=== PATIENT | female | born 1980 | race Caucasian/White ===

== ENCOUNTER 2017-06-08 17:33 | Emergency (ER) | payer MEDICAID ==
[~2017-06-08] VITALS: Ht 172.7 cm; Wt 59.3 kg
[2017-06-08 17:35] VITALS: BP 122/79
== END 2017-06-08 18:32 | disposition home or self-care (01) ==
LOC: ED 18:15
DX: G89.11 Acute pain due to trauma (principal); M79.602 Pain in left arm; Z98.890 Other specified postprocedural states
CPT/HCPCS: 99281

== ENCOUNTER 2019-02-18 21:23 | Emergency (ER) | payer MEDICAID ==
[~2019-02-18] VITALS: Ht 175.3 cm; Wt 61.2 kg
[2019-02-18 22:13] VITALS: BP 116/70
--- NOTE | 2019-02-18 22:32 | NUR ---
Patient came into ER c/o SOB. She states it woke her from sleep and she was unable to catch her breath. Since then she has had heaviness in her chest that will not go away but does not radiate. Patient keeps repeating, "I need to stop smoking. This is my own fault. I know it's going to kill me." Patient's voice is raspy but is not in any apparent distress. Skin PWD. Patient speaking in full word sentences. No cough noted.
== END 2019-02-18 22:52 | disposition home or self-care (01) ==
LOC: ED 22:30
DX: J20.8 Acute bronchitis due to other specified organisms (principal); J44.9 Chronic obstructive pulmonary disease, unspecified; F17.210 Nicotine dependence, cigarettes, uncomplicated
CPT/HCPCS: 71046; 93005; 99283; 99406

== ENCOUNTER 2019-06-18 15:40 | Emergency (ER) | payer MEDICAID ==
[~2019-06-18] VITALS: Ht 170.2 cm; Wt 64.0 kg
[2019-06-18 15:44] VITALS: BP 114/79
== END 2019-06-18 17:22 | disposition home or self-care (01) ==
LOC: ED 16:01
DX: J44.9 Chronic obstructive pulmonary disease, unspecified (principal); F17.200 Nicotine dependence, unspecified, uncomplicated
CPT/HCPCS: 71045; 99283

== ENCOUNTER 2019-07-05 10:58 | Inpatient (IN) | payer MEDICAID ==
[~2019-07-05] VITALS: Ht 175.3 cm; Wt 65.9 kg
--- NOTE | 2019-07-05 11:02 | NUR ---
TRIAGE IN ROOM. PT WAS 82% ON ROOM AIR, AND 87% W A NASAL CANULA 6L. MASK APPLIED PRIOR TO TRIAGE IN ROOM 33.
[2019-07-05] MEDS ORDERED: ALBUTEROL/IPRATROPIUM 2.5MG/0.5MG, 3 ML ONE (11:23)
[2019-07-05] MEDS ORDERED: ALBUTEROL/IPRATROPIUM 2.5MG/0.5MG, 3 ML NPPB ONE (11:30)
[2019-07-05] MEDS ORDERED: SODIUM CHLORIDE FLUSH 10ML SYR IVF ONE (11:30)
[2019-07-05 11:40] LABS: BASOPHILS # (AUTO) 0.01 x10^3/uL (0-0.1); BASOPHILS % (AUTO) 0 % (0-1); EOSINOPHILS % (AUTO) 0 % (1-7); LYMPHOCYTES # (AUTO) 0.82 x10^3/uL (1-3.4); LYMPHOCYTES % (AUTO) 8 % (22-44); MD NO; MEAN CORPUSCULAR HEMOGLOBIN 33.9 pg (27.0-34.8); MEAN CORPUSCULAR HGB CONC 33.8 g/dL (32.4-35.8); MEAN CORPUSCULAR VOLUME 100.4 fL (80-100); MEAN PLATELET VOLUME 8.3 fL (7.4-10.4); MONOCYTES % (AUTO) 12 % (2-9); NEUTROPHILS # (AUTO) 8.38 x10^3/uL (1.8-6.8); NEUTROPHILS % (AUTO) 80 % (42-75); PLATELET COUNT 262 x10^3/uL (130-400); RED BLOOD COUNT 4.59 x10^6/uL (3.82-5.3); RED CELL DISTRIBUTION WIDTH 13.1 % (9.6-15.2)
--- NOTE | 2019-07-05 11:43 | NUR ---
IV START FAILED AFTER INITIAL BLOOD RETURN STOPPED. SECOND ATTEMPT UNDERWAY.
--- NOTE | 2019-07-05 11:44 | NUR ---
PIV EST, LABS DRAWN, CXR AT BEDSIDE. NEB TX COMPLETE. PT USING ACCESSORY MUSCLES, R40. PLAN CONT NEB AND OPTIFLO. CALLED RESP. ANDRY WAS AT BEDSIDE. LAB AT BEDSIDE. PLAN FOR ABG.
[2019-07-05 11:49] LABS: ALBUMIN 3.2 g/dL (3.4-5.0); ANION GAP 12 mmol/L (5-15); CALCIUM 9.1 mg/dL (8.5-10.1); CHLORIDE 96 mmol/L (98-107); CREATININE 0.81 mg/dL (0.55-1.02)
--- NOTE | 2019-07-05 12:04 | NUR ---
ANDRY WAS IN ROOM TO DISCUSS INTUBATION. PLAN FOR OPTIFLOW AND IN LINE BREATHING TX. RESP AT BEDSIDE.
[2019-07-05] MEDS ORDERED: CEFTRIAXONE PMX 1GM/50ML 50 ML ONE (12:26)
[2019-07-05] MEDS ORDERED: AZITHROMYCIN 500 MG in SODIUM CHLORIDE 0.9% 250 ML IVPB ONE (12:30)
[2019-07-05] MEDS ORDERED: CEFTRIAXONE PMX 1GM/50ML 50 ML IVPB ONE (12:30)
[2019-07-05] MEDS ORDERED: ALBUTEROL/IPRATROPIUM 2.5MG/0.5MG, 3 ML NEB ONE (12:30)
[2019-07-05] MEDS ORDERED: VECURONIUM 10 MG ONE (12:39)
[2019-07-05] MEDS ORDERED: PROPOFOL 100 ML IV ONE (12:49)
--- NOTE | 2019-07-05 13:05 | NUR ---
1247 jasmineusz in room. 1251 meds: 7 mg vec, 20 etomidate 1300 intubated. 7.5 tube 25 at lip. 18 fr og inserted. plan for central line once settled. 1313 saenz placed. prop gtt initiated. restraints in place. as
[2019-07-05] MEDS ORDERED: ACETAMINOPHEN 325 MG SUPP ONE (13:16)
[2019-07-05] MEDS ORDERED: ICN MIDAZOLAM 0.1 MG/ML IV IVPush ONE (13:30)
[2019-07-05] MEDS ORDERED: ETOMIDATE 40 MG/20 ML IVPush ONE (13:30)
[2019-07-05] MEDS ORDERED: SODIUM CHLORIDE 0.9% 1,000ML IVBOLUS ONE (13:30)
[2019-07-05] MEDS ORDERED: VECURONIUM 10 MG IVPush ONE (13:30)
[2019-07-05] MEDS ORDERED: ACETAMINOPHEN 650 MG SUPP PR ONE (13:30)
[2019-07-05] MEDS ORDERED: MIDAZOLAM 1 MG/ML, 5ML IVPush ONE (13:30)
[2019-07-05] MEDS: PROPOFOL 100 ML IV PRN ×3 (13:35→21:32)
--- NOTE | 2019-07-05 14:03 | NUR ---
saenz put out approx 40 cc khai urine. per verbal order 30 cc per kg, 30x61 kg. 1st liter ns infused. 2nd liter in process cxr was at bedside, delay d/t equipment. as
--- NOTE | 2019-07-05 14:05 | NUR ---
end tidal co2 38. as
--- NOTE | 2019-07-05 14:14 | NUR ---
nolvia/labs drawn. as
--- NOTE | 2019-07-05 14:30 | NUR ---
gulshan smith: [phone] *[phone]
--- NOTE | 2019-07-05 14:30 | NUR ---
report to [facility] hdz. versed prn per may. pt wakes up v easily. as
--- NOTE | 2019-07-05 14:39 | NUR ---
total 2 L ns infused. [facility] made aware of low urine outpt. no new orders. per [facility] hold off on central line right now. as
--- NOTE | 2019-07-05 14:47 | NUR ---
1 silver ring and 1 silver necklace placed in labeled clean urine cup. as
--- NOTE | 2019-07-05 15:40 | NUR ---
PT TX TO ICU LALIT RN W/ 2 RNS/SUMIT ERICKSON ON ZOLL W/ ALL BELONGINGS.
[2019-07-05] MEDS ORDERED: NOREPINEPHRINE 8 MG in SODIUM CHLORIDE 0.9% 242 ML IV PRN (16:17)
[2019-07-05] MEDS ORDERED: PHARMACY MAY ADJ FOR RENAL FX MC SCH (16:30)
[2019-07-05] MEDS ORDERED: BISACODYL 10 MG SUPP PR PRN (16:30)
[2019-07-05] MEDS ORDERED: SENNA 176 MG/5 ML ORAL SOL NG PRN (16:30)
[2019-07-05] MEDS ORDERED: LACTULOSE 20 GM/30 ML UDC NG PRN (16:30)
[2019-07-05] MEDS ORDERED: SENNA/DOCUSATE TABLET NG PRN (16:30)
[2019-07-05] MEDS ORDERED: LIDOCAINE-MPF 1%, 2ML ENDO PRN (16:30)
[2019-07-05] MEDS: MIDAZOLAM 1 MG/ML, 5ML IVPush PRN ×2 (17:21→19:24)
[2019-07-05 18:23] LABS: TRIGLYCERIDES 70 mg/dL (50-200)
[2019-07-05 18:26] LABS: TROPONIN I 0.227 ng/mL (0.000-0.045)
[2019-07-05] MEDS ORDERED: PHARMACY MAY ADJ FOR RENAL FX MC PRN (19:00)
[2019-07-05] MEDS: ALBUTEROL/IPRATROPIUM 2.5MG/0.5MG, 3 ML NPPB SCH ×2 (19:12→22:27)
[2019-07-05] MEDS: ASCORBATE SODIUM 3,000 MG in SODIUM CHLORIDE 0.9% 250 ML IVPB SCH (19:25)
[2019-07-05] MEDS: ZINC SULFATE 220 MG CAPSULE PO SCH (19:28)
[2019-07-05] MEDS: CHOLECALCIFEROL 5,000u TAB PO SCH (19:28)
[2019-07-05] MEDS: PLAQUENIL 200MG/8ML ORAL SUSP PO SCH (19:29)
[2019-07-05] MEDS: ACETAMINOPHEN 325 MG TABLET PO PRN (20:23)
[2019-07-05] MEDS: MONTELUKAST 10 MG TABLET PO SCH (21:32)
[2019-07-05 23:07] LABS: TROPONIN I 0.154 ng/mL (0.000-0.045)
[2019-07-06] MEDS: MIDAZOLAM HCL 50 MG in SODIUM CHLORIDE 0.9% 40 ML IV PRN ×4 (00:08→23:19)
[2019-07-06] MEDS: ASCORBATE SODIUM 3,000 MG in SODIUM CHLORIDE 0.9% 250 ML IVPB SCH ×5 (00:16→23:25)
[2019-07-06] MEDS: ALBUTEROL/IPRATROPIUM 2.5MG/0.5MG, 3 ML NPPB SCH ×6 (02:50→22:20)
[2019-07-06] MEDS: PROPOFOL 100 ML IV PRN ×4 (03:06→20:45)
[2019-07-06 04:00] VITALS: BP 108/68
[2019-07-06 05:50] LABS: MEAN CORPUSCULAR HEMOGLOBIN 33.9 pg (27.0-34.8); MEAN CORPUSCULAR HGB CONC 33.9 g/dL (32.4-35.8); MEAN CORPUSCULAR VOLUME 100.1 fL (80-100); MEAN PLATELET VOLUME 8.4 fL (7.4-10.4); PLATELET COUNT 185 x10^3/uL (130-400); RED BLOOD COUNT 3.78 x10^6/uL (3.82-5.3); RED CELL DISTRIBUTION WIDTH 13.6 % (9.6-15.2)
[2019-07-06 05:59] LABS: ALBUMIN 2.1 g/dL (3.4-5.0); ANION GAP 7 mmol/L (5-15); CALCIUM 8.4 mg/dL (8.5-10.1); CHLORIDE 103 mmol/L (98-107)
[2019-07-06 06:06] LABS: TROPONIN I 0.042 ng/mL (0.000-0.045)
[2019-07-06 06:11] LABS: D-DIMER 3.6 ug/mlFEU (0.00-0.52); INTERNATIONAL NORMALIZED RATIO 1.21 (0.93-1.1); PROTHROMBIN TIME 12.9 Seconds (9.6-11.5)
[2019-07-06 06:18] LABS: MD YES
[2019-07-06 06:19] LABS: BAND#(MANUAL) 1.28 x10^3/uL; BANDS%(MANUAL) 18 % (0-7); LYMPHS% (MANUAL) 7 % (22-44); MONOS#(MANUAL) 0.36 x10^3/uL (0.3-2.7); MONOS% (MANUAL) 5 % (2-9); SEG#(MANUAL) 4.97 x10^3/uL (1.8-6.8); SEGS% (MANUAL) 70 % (42-75)
[2019-07-06 06:21] LABS: <PLATELET ESTIMATE> ADEQUATE; <PLT MORPHOLOGY> NORMAL PLT MORPH; PMNS WITH VACUOLES 1+
[2019-07-06 06:26] LABS: ALANINE AMINOTRANSFERASE 39 U/L (12-78); ALKALINE PHOSPHATASE 76 U/L (45-117); BILIRUBIN,TOTAL 0.7 mg/dL (0.2-1.0); CREATINE KINASE, TOTAL 23 U/L (26-192); CREATININE 0.42 mg/dL (0.55-1.02); TOTAL PROTEIN 5.7 g/dL (6.4-8.2)
[2019-07-06] MEDS: PLAQUENIL 200MG/8ML ORAL SUSP PO SCH ×2 (06:33→16:53)
[2019-07-06] MEDS ORDERED: ENOXAPARIN 40 MG/0.4 ML ONE (07:47)
[2019-07-06] MEDS ORDERED: FAMOTIDINE 20 MG TABLET ONE (07:47)
[2019-07-06] MEDS: CHOLECALCIFEROL 5,000u TAB PO SCH (07:48)
[2019-07-06] MEDS: ZINC SULFATE 220 MG CAPSULE PO SCH (07:48)
[2019-07-06] MEDS: FAMOTIDINE 20 MG TABLET PO SCH ×2 (07:48→20:44)
[2019-07-06] MEDS: ENOXAPARIN 40 MG/0.4 ML SQ SCH (07:49)
[2019-07-06] MEDS ORDERED: MAGNESIUM SULFATE PMX 2GM/50ML 50 ML IVPB ONE (09:00)
[2019-07-06] MEDS: POTASSIUM CHLORIDE 10% 40 MEQ/30 ML UDC NG SCH ×2 (12:19→20:44)
[2019-07-06] MEDS: AZITHROMYCIN 200 MG/5 ML, ORAL SUSP PO SCH (12:19)
[2019-07-06] MEDS: CEFTRIAXONE PMX 2GM/50ML 50 ML IV SCH (12:19)
[2019-07-06] MEDS: ACETAMINOPHEN 325 MG TABLET PO PRN ×2 (12:35→23:26)
[2019-07-06] MEDS ORDERED: AZITHROMYCIN 500 MG in SODIUM CHLORIDE 0.9% 250 ML IV SCH (13:00)
[2019-07-06] MEDS ORDERED: POTASSIUM CHLORIDE 20 MEQ, MAGNESIUM SULFATE 1 GM, THIAMINE 200 MG, FOLIC ACID 1 MG, MV... IV SCH (14:30)
[2019-07-06] MEDS: MONTELUKAST 10 MG TABLET PO SCH (20:45)
[2019-07-06] MEDS ORDERED: ACETAMINOPHEN 650 MG/20.3 ML UDC ONE (23:25)
[2019-07-07] MEDS: PROPOFOL 100 ML IV PRN ×4 (01:26→20:24)
[2019-07-07] MEDS ORDERED: ALBUMIN HUMAN 5% 500 ML IV ONE (01:30)
[2019-07-07] MEDS: ALBUTEROL/IPRATROPIUM 2.5MG/0.5MG, 3 ML NPPB SCH ×6 (02:35→22:25)
[2019-07-07] MEDS: ASCORBATE SODIUM 3,000 MG in SODIUM CHLORIDE 0.9% 250 ML IVPB SCH ×2 (04:34→09:52)
[2019-07-07] MEDS: PLAQUENIL 200MG/8ML ORAL SUSP PO SCH (04:34)
[2019-07-07 05:10] LABS: ALANINE AMINOTRANSFERASE 27 U/L (12-78); ALBUMIN 2.3 g/dL (3.4-5.0); ANION GAP 6 mmol/L (5-15); CALCIUM 8.3 mg/dL (8.5-10.1); CHLORIDE 109 mmol/L (98-107); CREATININE 0.34 mg/dL (0.55-1.02)
[2019-07-07 05:12] LABS: MEAN CORPUSCULAR HEMOGLOBIN 33.7 pg (27.0-34.8); MEAN CORPUSCULAR HGB CONC 32.9 g/dL (32.4-35.8); MEAN CORPUSCULAR VOLUME 102.6 fL (80-100); MEAN PLATELET VOLUME 8.7 fL (7.4-10.4); PLATELET COUNT 170 x10^3/uL (130-400); RED BLOOD COUNT 3.33 x10^6/uL (3.82-5.3); RED CELL DISTRIBUTION WIDTH 13.5 % (9.6-15.2)
[2019-07-07 05:13] LABS: D-DIMER 1.68 ug/mlFEU (0.00-0.52); INTERNATIONAL NORMALIZED RATIO 1.1 (0.93-1.1); PROTHROMBIN TIME 11.7 Seconds (9.6-11.5)
[2019-07-07 05:15] LABS: ALKALINE PHOSPHATASE 72 U/L (45-117); BILIRUBIN,TOTAL 0.5 mg/dL (0.2-1.0); CREATINE KINASE, TOTAL 85 U/L (26-192); TOTAL PROTEIN 5.4 g/dL (6.4-8.2)
[2019-07-07 05:19] LABS: TROPONIN I < 0.015 ng/mL (0.000-0.045)
[2019-07-07] MEDS: MIDAZOLAM HCL 50 MG in SODIUM CHLORIDE 0.9% 40 ML IV PRN ×3 (05:27→23:05)
[2019-07-07 06:17] LABS: MD YES
[2019-07-07 06:21] LABS: BAND#(MANUAL) 1.04 x10^3/uL; BANDS%(MANUAL) 15 % (0-7); EOS#(MANUAL) 0.14 x10^3/uL (0.0-0.4); EOS% (MANUAL) 2 % (1-7); LYMPH#(MANUAL) 0.97 x10^3/uL (1-3.4); LYMPHS% (MANUAL) 14 % (22-44); METAMYELOCYTES# (MANUAL) 0.35 x10^3/uL (0-0); METAMYELOCYTES% (MANUAL) 5 % (0-1); MONOS#(MANUAL) 0.35 x10^3/uL (0.3-2.7); MONOS% (MANUAL) 5 % (2-9); SEG#(MANUAL) 4.07 x10^3/uL (1.8-6.8); SEGS% (MANUAL) 59 % (42-75)
[2019-07-07 06:24] LABS: <PLATELET ESTIMATE> ADEQUATE; <PLT MORPHOLOGY> NORMAL PLT MORPH; PMNS WITH VACUOLES 1+
[2019-07-07] MEDS: CHOLECALCIFEROL 5,000u TAB PO SCH (09:00)
[2019-07-07] MEDS: ZINC SULFATE 220 MG CAPSULE PO SCH (09:00)
[2019-07-07] MEDS: FAMOTIDINE 20 MG TABLET PO SCH ×2 (10:07→20:24)
[2019-07-07] MEDS: ACETAMINOPHEN 325 MG TABLET PO PRN (10:07)
[2019-07-07] MEDS: ENOXAPARIN 40 MG/0.4 ML SQ SCH (10:07)
[2019-07-07] MEDS: AZITHROMYCIN 200 MG/5 ML, ORAL SUSP PO SCH (10:07)
[2019-07-07] MEDS: methylPREDNISolone SOD SUCC 125 MG/2 ML IVPush SCH ×3 (12:40→23:04)
[2019-07-07] MEDS: CEFTRIAXONE PMX 2GM/50ML 50 ML IV SCH (12:40)
[2019-07-07] MEDS: POTASSIUM CHLORIDE 20 MEQ, MAGNESIUM SULFATE 1 GM, THIAMINE 200 MG, FOLIC ACID 1 MG, MV... IV SCH (17:29)
[2019-07-07] MEDS: MONTELUKAST 10 MG TABLET PO SCH (20:24)
[2019-07-08] MEDS: PROPOFOL 100 ML IV PRN ×4 (01:38→20:54)
[2019-07-08] MEDS: ALBUTEROL/IPRATROPIUM 2.5MG/0.5MG, 3 ML NPPB SCH ×6 (02:12→23:00)
[2019-07-08 03:59] LABS: ALBUMIN 2.3 g/dL (3.4-5.0); ANION GAP 4 mmol/L (5-15); CALCIUM 8.8 mg/dL (8.5-10.1); CHLORIDE 109 mmol/L (98-107)
[2019-07-08 04:00] LABS: BASOPHILS # (AUTO) 0.02 x10^3/uL (0-0.1); BASOPHILS % (AUTO) 0 % (0-1); EOSINOPHILS % (AUTO) 0 % (1-7); INTERNATIONAL NORMALIZED RATIO 0.95 (0.93-1.1); LYMPHOCYTES # (AUTO) 0.35 x10^3/uL (1-3.4); LYMPHOCYTES % (AUTO) 5 % (22-44); MD NO; MEAN CORPUSCULAR HEMOGLOBIN 33.6 pg (27.0-34.8); MEAN CORPUSCULAR HGB CONC 33.1 g/dL (32.4-35.8); MEAN CORPUSCULAR VOLUME 101.3 fL (80-100); MEAN PLATELET VOLUME 8.8 fL (7.4-10.4); MONOCYTES # (AUTO) 0.24 x10^3/uL (0.2-0.8); MONOCYTES % (AUTO) 3 % (2-9); NEUTROPHILS # (AUTO) 6.69 x10^3/uL (1.8-6.8); NEUTROPHILS % (AUTO) 92 % (42-75); PLATELET COUNT 206 x10^3/uL (130-400); PROTHROMBIN TIME 10.1 Seconds (9.6-11.5); RED CELL DISTRIBUTION WIDTH 13.4 % (9.6-15.2)
[2019-07-08 04:03] LABS: ALANINE AMINOTRANSFERASE 29 U/L (12-78); ALKALINE PHOSPHATASE 106 U/L (45-117); BILIRUBIN,TOTAL 0.4 mg/dL (0.2-1.0); CREATINE KINASE, TOTAL 64 U/L (26-192); CREATININE 0.37 mg/dL (0.55-1.02); TOTAL PROTEIN 6.1 g/dL (6.4-8.2); TRIGLYCERIDES 162 mg/dL (50-200)
[2019-07-08] MEDS: methylPREDNISolone SOD SUCC 125 MG/2 ML IVPush SCH ×3 (04:51→16:45)
[2019-07-08] MEDS: ENOXAPARIN 40 MG/0.4 ML SQ SCH (09:00)
[2019-07-08] MEDS: FAMOTIDINE 20 MG TABLET PO SCH ×2 (09:00→22:11)
[2019-07-08] MEDS: MIDAZOLAM HCL 50 MG in SODIUM CHLORIDE 0.9% 40 ML IV PRN ×2 (09:01→17:26)
[2019-07-08] MEDS: CEFTRIAXONE PMX 2GM/50ML 50 ML IV SCH (11:30)
[2019-07-08] MEDS: AZITHROMYCIN 200 MG/5 ML, ORAL SUSP PO SCH (11:32)
[2019-07-08] MEDS: BUDESONIDE 0.5 MG/2 ML INHA INH SCH (18:51)
[2019-07-08] MEDS: MONTELUKAST 10 MG TABLET PO SCH (22:11)
[2019-07-08] MEDS: POTASSIUM CHLORIDE 20 MEQ, MAGNESIUM SULFATE 1 GM, THIAMINE 200 MG, FOLIC ACID 1 MG, MV... IV SCH (22:31)
[2019-07-09] MEDS: methylPREDNISolone SOD SUCC 125 MG/2 ML IVPush SCH ×4 (00:37→18:30)
[2019-07-09] MEDS: PROPOFOL 100 ML IV PRN ×3 (01:51→17:00)
[2019-07-09] MEDS: ALBUTEROL/IPRATROPIUM 2.5MG/0.5MG, 3 ML NPPB SCH ×6 (02:45→22:26)
[2019-07-09] MEDS: MIDAZOLAM HCL 50 MG in SODIUM CHLORIDE 0.9% 40 ML IV PRN ×3 (03:33→22:05)
[2019-07-09 04:16] LABS: MEAN CORPUSCULAR HEMOGLOBIN 33.8 pg (27.0-34.8); MEAN CORPUSCULAR HGB CONC 33.5 g/dL (32.4-35.8); MEAN CORPUSCULAR VOLUME 100.7 fL (80-100); MEAN PLATELET VOLUME 8.6 fL (7.4-10.4); PLATELET COUNT 259 x10^3/uL (130-400); RED BLOOD COUNT 3.79 x10^6/uL (3.82-5.3); RED CELL DISTRIBUTION WIDTH 13.6 % (9.6-15.2)
[2019-07-09 04:25] LABS: ANION GAP 5 mmol/L (5-15); CHLORIDE 108 mmol/L (98-107)
[2019-07-09 04:26] LABS: ALANINE AMINOTRANSFERASE 30 U/L (12-78); ALBUMIN 2.4 g/dL (3.4-5.0)
[2019-07-09 04:30] LABS: ALKALINE PHOSPHATASE 126 U/L (45-117); BILIRUBIN,TOTAL 0.3 mg/dL (0.2-1.0); CREATINE KINASE, TOTAL 28 U/L (26-192); INTERNATIONAL NORMALIZED RATIO 0.96 (0.93-1.1); PROTHROMBIN TIME 10.2 Seconds (9.6-11.5); TOTAL PROTEIN 6.6 g/dL (6.4-8.2)
[2019-07-09 04:51] LABS: BASOPHILS % (AUTO) 4 % (0-1); EOSINOPHILS % (AUTO) 0 % (1-7); LYMPHOCYTES # (AUTO) 0.47 x10^3/uL (1-3.4); LYMPHOCYTES % (AUTO) 6 % (22-44); MD SCAN; MONOCYTES # (AUTO) 0.57 x10^3/uL (0.2-0.8); MONOCYTES % (AUTO) 7 % (2-9); NEUTROPHILS # (AUTO) 6.66 x10^3/uL (1.8-6.8); NEUTROPHILS % (AUTO) 83 % (42-75)
[2019-07-09] MEDS: BUDESONIDE 0.5 MG/2 ML INHA INH SCH ×2 (06:50→18:51)
[2019-07-09] MEDS: ENOXAPARIN 40 MG/0.4 ML SQ SCH (08:53)
[2019-07-09] MEDS: FAMOTIDINE 20 MG TABLET PO SCH ×2 (08:53→21:06)
[2019-07-09] MEDS: CEFTRIAXONE PMX 2GM/50ML 50 ML IV SCH (12:57)
[2019-07-09] MEDS: AZITHROMYCIN 200 MG/5 ML, ORAL SUSP PO SCH (12:58)
[2019-07-09] MEDS ORDERED: FUROSEMIDE 20 MG/2 ML ONE (15:37)
[2019-07-09] MEDS ORDERED: FUROSEMIDE 20 MG/2 ML IV ONE (16:00)
[2019-07-09] MEDS ORDERED: FUROSEMIDE 40 MG/4 ML IV ONE (16:00)
[2019-07-09] MEDS: MONTELUKAST 10 MG TABLET PO SCH (21:06)
[2019-07-09] MEDS: POTASSIUM CHLORIDE 20 MEQ, MAGNESIUM SULFATE 1 GM, THIAMINE 200 MG, FOLIC ACID 1 MG, MV... IV SCH (21:06)
[2019-07-10] MEDS: methylPREDNISolone SOD SUCC 125 MG/2 ML IVPush SCH ×4 (00:36→18:34)
[2019-07-10] MEDS: PROPOFOL 100 ML IV PRN ×4 (00:37→20:35)
[2019-07-10] MEDS: ALBUTEROL/IPRATROPIUM 2.5MG/0.5MG, 3 ML NPPB SCH ×6 (02:23→22:35)
[2019-07-10 05:03] LABS: MEAN CORPUSCULAR HEMOGLOBIN 33.4 pg (27.0-34.8); MEAN CORPUSCULAR HGB CONC 32.9 g/dL (32.4-35.8); MEAN CORPUSCULAR VOLUME 101.7 fL (80-100); MEAN PLATELET VOLUME 8.8 fL (7.4-10.4); PLATELET COUNT 321 x10^3/uL (130-400); RED BLOOD COUNT 3.78 x10^6/uL (3.82-5.3); RED CELL DISTRIBUTION WIDTH 13.5 % (9.6-15.2)
[2019-07-10 05:04] LABS: INTERNATIONAL NORMALIZED RATIO 1.03 (0.93-1.1); PROTHROMBIN TIME 10.9 Seconds (9.6-11.5)
[2019-07-10 05:06] LABS: ALBUMIN 2.3 g/dL (3.4-5.0); ANION GAP 5 mmol/L (5-15); CALCIUM 8.1 mg/dL (8.5-10.1); CHLORIDE 106 mmol/L (98-107)
[2019-07-10 05:12] LABS: ALANINE AMINOTRANSFERASE 39 U/L (12-78); ALKALINE PHOSPHATASE 119 U/L (45-117); BILIRUBIN,TOTAL 0.3 mg/dL (0.2-1.0); CREATINE KINASE, TOTAL 17 U/L (26-192); CREATININE 0.47 mg/dL (0.55-1.02); TOTAL PROTEIN 6.4 g/dL (6.4-8.2)
[2019-07-10 05:50] LABS: BASOPHILS # (AUTO) 0.04 x10^3/uL (0-0.1); BASOPHILS % (AUTO) 1 % (0-1); EOSINOPHILS % (AUTO) 0 % (1-7); LYMPHOCYTES # (AUTO) 0.37 x10^3/uL (1-3.4); LYMPHOCYTES % (AUTO) 4 % (22-44); MD SCAN; MONOCYTES # (AUTO) 0.58 x10^3/uL (0.2-0.8); MONOCYTES % (AUTO) 7 % (2-9); NEUTROPHILS # (AUTO) 7.46 x10^3/uL (1.8-6.8); NEUTROPHILS % (AUTO) 88 % (42-75)
[2019-07-10] MEDS: MIDAZOLAM HCL 50 MG in SODIUM CHLORIDE 0.9% 40 ML IV PRN ×3 (06:42→16:08)
[2019-07-10] MEDS: BUDESONIDE 0.5 MG/2 ML INHA INH SCH ×2 (06:45→18:25)
[2019-07-10] MEDS: ENOXAPARIN 40 MG/0.4 ML SQ SCH (08:35)
[2019-07-10] MEDS: FAMOTIDINE 20 MG TABLET PO SCH ×2 (09:15→20:35)
[2019-07-10] MEDS: CEFTRIAXONE PMX 2GM/50ML 50 ML IV SCH (11:23)
[2019-07-10] MEDS: MONTELUKAST 10 MG TABLET PO SCH (20:35)
[2019-07-10] MEDS: POTASSIUM CHLORIDE 20 MEQ, MAGNESIUM SULFATE 1 GM, THIAMINE 200 MG, FOLIC ACID 1 MG, MV... IV SCH (21:18)
[2019-07-11] MEDS: methylPREDNISolone SOD SUCC 125 MG/2 ML IVPush SCH ×2 (00:04→05:27)
[2019-07-11] MEDS: PROPOFOL 100 ML IV PRN ×2 (01:01→23:58)
[2019-07-11] MEDS: ALBUTEROL/IPRATROPIUM 2.5MG/0.5MG, 3 ML NPPB SCH ×6 (02:25→22:47)
[2019-07-11] MEDS: MIDAZOLAM HCL 50 MG in SODIUM CHLORIDE 0.9% 40 ML IV PRN ×3 (03:19→14:29)
[2019-07-11 04:42] LABS: MEAN CORPUSCULAR HEMOGLOBIN 33.1 pg (27.0-34.8); MEAN CORPUSCULAR HGB CONC 32.9 g/dL (32.4-35.8); MEAN CORPUSCULAR VOLUME 100.5 fL (80-100); MEAN PLATELET VOLUME 8.9 fL (7.4-10.4); PLATELET COUNT 332 x10^3/uL (130-400); RED BLOOD COUNT 3.63 x10^6/uL (3.82-5.3); RED CELL DISTRIBUTION WIDTH 13.6 % (9.6-15.2)
[2019-07-11 04:47] LABS: INTERNATIONAL NORMALIZED RATIO 1.04 (0.93-1.1)
[2019-07-11 04:50] LABS: ALBUMIN 2.2 g/dL (3.4-5.0); ANION GAP 5 mmol/L (5-15); CALCIUM 8.4 mg/dL (8.5-10.1); CHLORIDE 107 mmol/L (98-107)
[2019-07-11 04:56] LABS: ALANINE AMINOTRANSFERASE 45 U/L (12-78); ALKALINE PHOSPHATASE 101 U/L (45-117); BILIRUBIN,TOTAL 0.3 mg/dL (0.2-1.0); CREATINE KINASE, TOTAL 20 U/L (26-192); CREATININE 0.39 mg/dL (0.55-1.02); TOTAL PROTEIN 5.8 g/dL (6.4-8.2); TRIGLYCERIDES 136 mg/dL (50-200)
[2019-07-11 05:04] LABS: BASOPHILS # (AUTO) 0.15 x10^3/uL (0-0.1); BASOPHILS % (AUTO) 2 % (0-1); EOSINOPHILS % (AUTO) 0 % (1-7); LYMPHOCYTES # (AUTO) 0.42 x10^3/uL (1-3.4); LYMPHOCYTES % (AUTO) 5 % (22-44); MD SCAN; MONOCYTES % (AUTO) 4 % (2-9); NEUTROPHILS # (AUTO) 7.62 x10^3/uL (1.8-6.8); NEUTROPHILS % (AUTO) 90 % (42-75)
[2019-07-11] MEDS: BUDESONIDE 0.5 MG/2 ML INHA INH SCH ×2 (06:40→19:59)
[2019-07-11] MEDS ORDERED: DEXMEDETOMIDINE 200 MCG in SODIUM CHLORIDE 0.9% 48 ML IV PRN (08:00)
[2019-07-11] MEDS ORDERED: FUROSEMIDE 20 MG/2 ML IV ONE (09:30)
[2019-07-11] MEDS: methylPREDNISolone SOD SUCC 40 MG/ML IV SCH ×2 (09:44→20:41)
[2019-07-11] MEDS: ENOXAPARIN 40 MG/0.4 ML SQ SCH (09:44)
[2019-07-11] MEDS: FAMOTIDINE 20 MG TABLET PO SCH ×2 (09:44→20:41)
[2019-07-11] MEDS ORDERED: DEXMEDETOMIDINE 400 MCG/100 ML IV PRN (10:00)
[2019-07-11] MEDS: DEXMEDETOMIDINE 400 MCG/100 ML IV PRN ×3 (10:17→21:26)
[2019-07-11] MEDS: MONTELUKAST 10 MG TABLET PO SCH (20:41)
[2019-07-11] MEDS: POTASSIUM CHLORIDE 20 MEQ, MAGNESIUM SULFATE 1 GM, THIAMINE 200 MG, FOLIC ACID 1 MG, MV... IV SCH (21:26)
[2019-07-11] MEDS: NICOTINE 21 MG/24 HR PATCH.TD24 TD SCH (23:15)
[2019-07-12] MEDS: ALBUTEROL/IPRATROPIUM 2.5MG/0.5MG, 3 ML NPPB SCH ×5 (02:09→19:40)
[2019-07-12] MEDS: PROPOFOL 100 ML IV PRN (03:54)
[2019-07-12 05:20] LABS: BASOPHILS # (AUTO) 0.05 x10^3/uL (0-0.1); BASOPHILS % (AUTO) 0 % (0-1); EOSINOPHILS % (AUTO) 0 % (1-7); LYMPHOCYTES # (AUTO) 0.79 x10^3/uL (1-3.4); LYMPHOCYTES % (AUTO) 8 % (22-44); MD NO; MEAN CORPUSCULAR HGB CONC 32.9 g/dL (32.4-35.8); MEAN PLATELET VOLUME 8.5 fL (7.4-10.4); MONOCYTES # (AUTO) 0.51 x10^3/uL (0.2-0.8); MONOCYTES % (AUTO) 5 % (2-9); NEUTROPHILS # (AUTO) 9.08 x10^3/uL (1.8-6.8); NEUTROPHILS % (AUTO) 87 % (42-75); PLATELET COUNT 363 x10^3/uL (130-400); RED BLOOD COUNT 3.79 x10^6/uL (3.82-5.3); RED CELL DISTRIBUTION WIDTH 13.3 % (9.6-15.2)
[2019-07-12 05:25] LABS: ALANINE AMINOTRANSFERASE 46 U/L (12-78); ALBUMIN 2.1 g/dL (3.4-5.0); ANION GAP 5 mmol/L (5-15); CALCIUM 8.2 mg/dL (8.5-10.1); CHLORIDE 103 mmol/L (98-107)
[2019-07-12 05:27] LABS: INTERNATIONAL NORMALIZED RATIO 1.06 (0.93-1.1); PROTHROMBIN TIME 11.2 Seconds (9.6-11.5)
[2019-07-12 05:30] LABS: ALKALINE PHOSPHATASE 91 U/L (45-117); BILIRUBIN,TOTAL 0.2 mg/dL (0.2-1.0); CREATINE KINASE, TOTAL 21 U/L (26-192); TOTAL PROTEIN 5.7 g/dL (6.4-8.2)
[2019-07-12] MEDS: BUDESONIDE 0.5 MG/2 ML INHA INH SCH ×2 (06:49→19:40)
[2019-07-12] MEDS: MIDAZOLAM HCL 50 MG in SODIUM CHLORIDE 0.9% 40 ML IV PRN (07:36)
[2019-07-12] MEDS: FAMOTIDINE 20 MG TABLET PO SCH ×2 (08:40→21:16)
[2019-07-12] MEDS: methylPREDNISolone SOD SUCC 40 MG/ML IV SCH ×2 (08:40→21:15)
[2019-07-12] MEDS: ENOXAPARIN 40 MG/0.4 ML SQ SCH (08:40)
[2019-07-12] MEDS ORDERED: GLYCOPYRROLATE 0.2MG/1ML, 5ML IVPush PRN ×2 (09:30)
[2019-07-12 21:00] VITALS: BP 124/77
[2019-07-12] MEDS: MONTELUKAST 10 MG TABLET PO SCH (21:16)
[2019-07-12] MEDS: POTASSIUM CHLORIDE 20 MEQ, MAGNESIUM SULFATE 1 GM, THIAMINE 200 MG, FOLIC ACID 1 MG, MV... IV SCH (21:16)
[2019-07-12] MEDS: NICOTINE 21 MG/24 HR PATCH.TD24 TD SCH (22:32)
[2019-07-12] MEDS ORDERED: ZOLPIDEM 5MG TABLET PO PRN (23:00)
[2019-07-12] MEDS: DIPHENHYDRAMINE 25 MG CAPSULE PO PRN (23:21)
[2019-07-13 01:05] VITALS: BP 133/80
[2019-07-13 06:41] VITALS: BP 123/75
[2019-07-13] MEDS: ALBUTEROL/IPRATROPIUM 2.5MG/0.5MG, 3 ML NPPB SCH ×4 (07:05→20:00)
[2019-07-13] MEDS: ENOXAPARIN 40 MG/0.4 ML SQ SCH (08:00)
[2019-07-13] MEDS: methylPREDNISolone SOD SUCC 40 MG/ML IV SCH (08:38)
[2019-07-13] MEDS: FAMOTIDINE 20 MG TABLET PO SCH ×2 (08:38→20:07)
[2019-07-13 15:38] VITALS: BP 119/75
[2019-07-13 18:38] VITALS: BP 130/79
[2019-07-13] MEDS: DIPHENHYDRAMINE 25 MG CAPSULE PO PRN (20:07)
[2019-07-13] MEDS: MONTELUKAST 10 MG TABLET PO SCH (20:07)
[2019-07-13] MEDS: NICOTINE 21 MG/24 HR PATCH.TD24 TD SCH (22:49)
[2019-07-14 01:12] VITALS: BP 133/84
[2019-07-14 06:27] LABS: BASOPHILS % (AUTO) 0 % (0-1); EOSINOPHILS # (AUTO) 0.15 x10^3/uL (0-0.4); EOSINOPHILS % (AUTO) 1 % (1-7); LYMPHOCYTES # (AUTO) 1.28 x10^3/uL (1-3.4); LYMPHOCYTES % (AUTO) 10 % (22-44); MD NO; MEAN CORPUSCULAR HEMOGLOBIN 33.2 pg (27.0-34.8); MEAN CORPUSCULAR HGB CONC 33.1 g/dL (32.4-35.8); MEAN CORPUSCULAR VOLUME 100.3 fL (80-100); MEAN PLATELET VOLUME 8.6 fL (7.4-10.4); MONOCYTES # (AUTO) 0.96 x10^3/uL (0.2-0.8); MONOCYTES % (AUTO) 8 % (2-9); NEUTROPHILS # (AUTO) 10.01 x10^3/uL (1.8-6.8); NEUTROPHILS % (AUTO) 81 % (42-75); PLATELET COUNT 412 x10^3/uL (130-400); RED BLOOD COUNT 4.07 x10^6/uL (3.82-5.3); RED CELL DISTRIBUTION WIDTH 13.7 % (9.6-15.2)
[2019-07-14 06:34] LABS: ANION GAP 7 mmol/L (5-15); CALCIUM 9.3 mg/dL (8.5-10.1); CHLORIDE 104 mmol/L (98-107)
[2019-07-14 06:35] LABS: CREATININE 0.43 mg/dL (0.55-1.02)
[2019-07-14] MEDS: ALBUTEROL/IPRATROPIUM 2.5MG/0.5MG, 3 ML NPPB SCH ×3 (07:01→14:15)
[2019-07-14 07:29] VITALS: BP 133/80
[2019-07-14] MEDS: ENOXAPARIN 40 MG/0.4 ML SQ SCH (08:00)
[2019-07-14] MEDS: POTASSIUM CHLORIDE 20 MEQ TAB.ER.PRT PO SCH ×3 (08:05→17:01)
[2019-07-14] MEDS: FAMOTIDINE 20 MG TABLET PO SCH (08:05)
[2019-07-14 12:20] VITALS: BP 137/79
[2019-07-14] MEDS ORDERED: PRED10TA PO (16:15)
[2019-07-14 16:51] VITALS: BP 134/80
[2019-07-14] MEDS ORDERED: IPRA3AMP30 NPPB (17:52)
== END 2019-07-14 18:01 | disposition home health service (06) | DRG 871 ==
LOC: ED 11:12 → SUATTDRO 13:35 → EDIP 13:35 → ICU 15:22 → CCU 07-07 14:35 → 3N 07-12 16:49
PROVIDERS: ADMIT Internal Medicine; ATTEND Internal Medicine
PROC: 5A1945Z Respiratory Ventilation, 24-96 Consecutive Hours (ICD-10-PCS; principal; 2019-07-05)
PROC: 0BH17EZ Insertion of Endotracheal Airway into Trachea, Via Natural or Artificial Opening (ICD-10-PCS; 2019-07-05)
DX: A41.9 Sepsis, unspecified organism (principal); G93.41 Metabolic encephalopathy; J14 Pneumonia due to Hemophilus influenzae; J96.01 Acute respiratory failure with hypoxia; E87.4 Mixed disorder of acid-base balance; E87.1 Hypo-osmolality and hyponatremia; F10.239 Alcohol dependence with withdrawal, unspecified; J44.0 Chronic obstructive pulmonary disease with (acute) lower respiratory infection; J44.1 Chronic obstructive pulmonary disease with (acute) exacerbation; J45.901 Unspecified asthma with (acute) exacerbation; Z99.11 Dependence on respirator [ventilator] status; I82.409 Acute embolism and thrombosis of unspecified deep veins of unspecified lower extremity; E87.2 Acidosis; D72.810 Lymphocytopenia; D75.89 Other specified diseases of blood and blood-forming organs; E86.1 Hypovolemia; E87.6 Hypokalemia; T38.0X5A Adverse effect of glucocorticoids and synthetic analogues, initial encounter; Z88.0 Allergy status to penicillin; Z03.818 Encounter for observation for suspected exposure to other biological agents ruled out; F17.210 Nicotine dependence, cigarettes, uncomplicated; Z71.6 Tobacco abuse counseling; Y90.9 Presence of alcohol in blood, level not specified
CPT/HCPCS: 31500; 36415; 36600; 84145; 96374; 96375; 99291; 99292; J7626; 71045; 80048; 80053; 82040; 82550; 82607; 82728; 82803; 83605; 83615; 83735; 84100; 84443; 84478; 84484; 85025; 85379; 85384; 85610; 85730; 86140; 87040; 87070; 87081; 87205; 93005; 94002; 94003; 94150; 94640; G0378; J0456; J0696; J1650; J2250; J2704; J3411; J3475; J3480; P9045; J1940; J2920; J2930; J7030; J7050; J7512; Q0163; U0001